=== PATIENT | male | born 1955 | race Caucasian/White ===

== ENCOUNTER 2022-07-26 09:53 | Emergency (ER) | payer OTHER ==
[~2022-07-26] VITALS: Ht 165.1 cm; Wt 105.2 kg
--- NOTE | 2022-07-26 10:01 | NUR ---
Patient to ER bed 03 to gown for evaluation. Side rails up. Report given to Alexus HAMMONDS .
[2022-07-26 10:02] VITALS: BP_SYST 154
--- NOTE | 2022-07-26 10:09 | NUR ---
ASSUMED CARE OF PT FROM TRIAGE. PT BIB SELF FROM HOME C/O UPPER RIGHT QUADRANT ABD PAIN 7/10 THAT RADIATES TO THE RIGHT UPPER UPPER QUADRANT AND THE RIGHT FLANK. PT STATES PAIN AND NAUSEA X 1 WEEK. PT HX OF HTN AND HYPER LIPIDEMIA. PT VSS ON MONITOR RESTING IN BED WITH RAILS UP
[2022-07-26 10:41] LABS: BASOPHILS % (AUTO) 0.6 % (0.0-2.0); EOSINOPHILS # (AUTO) 0.1 K/uL (0.0-0.4); HEMATOCRIT 42.9 % (36-54); HEMOGLOBIN 14.5 g/dL (14.0-18.0); LYMPHOCYTES # (AUTO) 1.3 K/uL (1.0-5.5); LYMPHOCYTES % (AUTO) 27.3 % (20.5-51.5); MEAN CORPUSCULAR HEMOGLOBIN 29 pg (27-31); MEAN CORPUSCULAR HGB CONC 34 % (32-36); MEAN CORPUSCULAR VOLUME 84 fL (79.0-98.0); MONOCYTES # (AUTO) 0.4 K/uL (0.0-1.0); MONOCYTES % (AUTO) 9.1 % (1.7-9.3); PLATELET COUNT (AUTO) 138 K/uL (130-430); RED CELL DISTRIBUTION WIDTH 14.1 % (9.0-15.0); WHITE BLOOD COUNT (AUTO) 4.9 K/uL (4.8-10.8)
[2022-07-26 10:47] LABS: BILIRUBIN,URINE NEGATIVE (NEGATIVE); BLOOD, URINE NEGATIVE (NEGATIVE); CLARITY/URINE CLEAR (CLEAR); COLOR,URINE YELLOW (YELLOW); GLUCOSE,URINE NEGATIVE (NEGATIVE); KETONES,URINE NEGATIVE (NEGATIVE); LEUKOCYTE ESTERASE ,URINE NEGATIVE (NEGATIVE); NITRITE, URINE NEGATIVE (NEGATIVE); PROTEIN URINE NEGATIVE (NEGATIVE)
[2022-07-26 10:56] LABS: ALBUMIN 3.7 g/dL (3.4-4.8); CALCIUM 8.3 mg/dL (8.4-11.0); CREATININE 0.7 mg/dL (0.55-1.30); TOTAL BILIRUBIN 0.6 mg/dL (0.0-1.0)
--- NOTE | 2022-07-26 11:00 | NUR ---
Stacy mcgee in ED - 07/26/22 at 1335 by [email or web address] TRACEY Sethi at bedside examining patient.
--- NOTE | 2022-07-26 11:00 | NUR ---
ER at bedside examining patient.
--- NOTE | 2022-07-26 13:25 | NUR ---
ER at bedside examining patient.
[2022-07-26 13:33] VITALS: BP_SYST 124
--- NOTE | 2022-07-26 13:36 | NUR ---
Patient given written and verbal discharge instructions and verbalizes understanding. ER MD discussed with patient the results and treatment provided. Patient in stable condition. ID arm band removed. Patient educated on FATTY LIVER DISEASE and to follow up with PMD. Pain Scale . Opportunity for questions provided and answered.
== END 2022-07-26 13:36 | disposition home or self-care (01) ==
LOC: SED 09:53
DX: K57.90 Diverticulosis of intestine, part unspecified, without perforation or abscess without bleeding (principal); R10.11 Right upper quadrant pain; R11.0 Nausea; K76.0 Fatty (change of) liver, not elsewhere classified; I10 Essential (primary) hypertension; E78.5 Hyperlipidemia, unspecified; Z79.899 Other long term (current) drug therapy
CPT/HCPCS: 36415; 76376; 76700-TC; 80053; 81003; 83690; 85025; 99284